=== PATIENT | male | born 1965 | race Caucasian/White ===

== ENCOUNTER 2017-10-08 00:11 | Emergency (ER) | payer OTHER ==
[2017-10-08 00:32] VITALS: BP 123/76
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
[2017-10-08] MEDS ORDERED: ACETAMINOPHEN 500 MG TAB ONE (00:36)
[2017-10-08] MEDS ORDERED: ACETAMINOPHEN 500 MG TAB PO ONE (00:38)
== END 2017-10-08 00:40 | disposition home or self-care (01) ==
DX: S39.012A Strain of muscle, fascia and tendon of lower back, initial encounter (principal); I10 Essential (primary) hypertension; V49.60XA Unspecified car occupant injured in collision with unspecified motor vehicles in traffic accident, initial encounter; Y92.410 Unspecified street and highway as the place of occurrence of the external cause; Y99.1 Military activity; Y93.89 Activity, other specified